=== PATIENT | male | born 1970 | race African-American/Black ===

== ENCOUNTER 2016-12-07 21:59 | Inpatient (IN) | payer OTHER ==
--- NOTE | ~2016-12-07 | CR72 ---
[facility] A Service of [facility] & [facility] RADIOLOGY TEXT RESULTS PATIENT: ROSEMARY TRUONG LOCATION: [place] [address] : 74 UNIT #: [id number] AGE: [address]: Letha Martinez MD SEX: M ORDER DR: [id number] [facility] [address] [facility]. [place], [place] [address] [id number] I MR#: [id number] Acc #: [id number] NAME: ROSEMARY TRUONG : 1970 SEX: M STUDY DATE/TIME: 12/07/2016 22:02 UNIT: [facility] ROOM: [facility] STUDY DESCRIPTION: CR Chest Single View Portable Attending Physician: Andi Real M.D. Ordering Physician: Blu Craig M.D. Primary Care Physician: Primary Care Physician No MEDICAL IMAGING REPORT This report is preliminary unless electronic signature is present EXAM Single view of the chest, dated 12/07/2016. COMPARISON None. HISTORY Fatigue, fever and congestion for 3 days. FINDINGS A single AP portable view of the chest shows both lungs to be clear. The heart is normal in size. The mediastinal contour is normal. No significant bone abnormalities are seen. IMPRESSION Normal portable chest. Dictated by... Maurice Moralez M.D. THIS IS AN ELECTRONICALLY VERIFIED REPORT Maurice Moralez M.D. at 12/10/2016 1:40 PM CPR/cs TD: 12/08/2016 18:30 JOB #: [id number] MEDICAL IMAGING REPORT Page 1 of 1 COPY
--- NOTE | ~2016-12-07 | DS ---
Unit #: [id number] #: [id number] Patient: ROSEMARY TRUONG [id number] [address] [address] [id number] Issac MR#: [id number] NAME: ROSEMARY TRUONG ROOM: [facility] Age: 46 Sex: M Admission Date: 12/07/2016 : 1970 Discharge Date: 12/10/2016 Attending Physician: Letha Martinez M.D. DISCHARGE SUMMARY DISCHARGE DIAGNOSES 1. Hypertensive urgency. 2. Chronic kidney disease and polycystic kidney disease with stage 3. 3. Smoking. 4. Mild hypokalemia. 5. Headache. CONSULTATION Dr. Bee. PROCEDURES None. DIAGNOSTIC STUDIES LABORATORY: Urinalysis negative. Sodium 137, potassium 3.9, and creatinine 2.6. WBC 6.2, hemoglobin 13.4, and platelets 185,000. Urine drug screen positive for marijuana. IMAGING: CT scan of the head shows no acute intracranial abnormalities. Chest x-ray normal. CT scan of the abdomen without contrast shows extensive polycystic kidney with multiple cysts. Ultrasound of the kidneys shows numerous cysts bilaterally. ALLERGIES LISINOPRIL. DISCHARGE MEDICATIONS 1. Lopressor 100 p.o. b.i.d. 2. Hydralazine 25 at 3 times daily. 3. Cozaar 50 daily. 4. Amiloride 10 mg daily. HOSPITAL COURSE A 46-year-old admitted because of high blood pressure. Hypertensive urgency. Patient was seen by Dr. Monson. Currently, blood pressure is 150/88. Patient was started on new medications including metoprolol, hydralazine, Cozaar, and amiloride. Prescriptions have been given. I talked with the patient extensively regarding compliance with medications. He understands. Patient needs to avoid NSAIDS. Headache secondary to uncontrolled hypertension. Patient received Lortab. I did not give any prescriptions to take home. Unit #: [id number] #: [id number] Patient: ROSEMARY TRUONG Polycystic kidney disease with chronic kidney disease stage 3. Patient was seen by Dr. Monson. Currently, creatinine is stable. Okay to discharge. Avoid NSAIDS. DISPOSITION Discharge home. FOLLOWUP 1. With family physician in one week's time. 2. With Dr. Monson in two week's time. 1. Dictated by... Shane Phan TD: 12/10/2016 21:34 JOB #: [id number] DISCHARGE SUMMARY Page 1 of 1 X Letha Martinez MD X DISCHARGE SUMMARY
--- NOTE | ~2016-12-07 | US77 ---
[facility] A Service of [facility] RADIOLOGY TEXT RESULTS PATIENT: ROSEMARY TRUONG LOCATION: [place] [address] : 74 UNIT #: [id number] AGE: [address]: Letha Martinez MD SEX: M ORDER DR: [id number] [place] [id number] [place], [place] [address] [id number] I MR#: [id number] Acc #: [id number] NAME: ROSEMARY TRUONG : 1970 SEX: M STUDY DATE/TIME: 12/08/2016 12:15 UNIT: [facility] ROOM: [facility] STUDY DESCRIPTION: US Kidney Bilateral Complete Attending Physician: Andi Real M.D. Ordering Physician: Ed Doctor [id number] [facility] Primary Care Physician: Primary Care Physician No MEDICAL IMAGING REPORT This report is preliminary unless electronic signature is present EXAM Renal ultrasound INDICATION Renal failure. Patient has a creatinine of 2.5 and a GFR of 34.9. TECHNIQUE Rodriguez-scale and color Doppler sonographic images were obtained through the kidneys and bladder. FINDINGS Image quality is suboptimal, however patient does appear to have innumerable cysts seen throughout both kidneys, which would be in keeping with history of autosomal dominant polycystic kidney disease. No definite hydronephrosis is seen. Urinary bladder appears unremarkable. IMPRESSION Poor quality study, however patient does have innumerable cysts seen throughout both kidneys which would be keeping with history of autosomal dominant polycystic kidney disease. Dictated by... Tricia Barba M.D. THIS IS AN ELECTRONICALLY VERIFIED REPORT Tricia Barba M.D. at 12/11/2016 1:00 PM AFF/mjzev TD: 12/09/2016 07:49 JOB #: [id number] MEDICAL IMAGING REPORT [facility] A Service of [facility] RADIOLOGY TEXT RESULTS PATIENT: ROSEMARY TRUONG LOCATION: [place] [address] : 74 UNIT #: [id number] AGE: [address]: Letha Martinez MD SEX: M ORDER DR: Page 1 of 1 COPY
--- NOTE | ~2016-12-07 | CO ---
Unit #: [id number] #: [id number] Patient: ROSEMARY TRUONG [id number] [address] [place], [place] [address] [id number] Issac MR#: [id number] NAME: ROSEMARY TRUONG ROOM: 55 Age: 46 Sex: M Admission Date: 12/07/2016 : 1970 Attending Physician: Andi Real M.D. Primary Care Physician: No Primary Care Physician CONSULTATION REPORT REASON FOR CONSULTATION Known history of polycystic kidney disease, accelerated hypertension, noncompliance with medical therapy. First of all, I want to thank you for the opportunity to share in the care of this patient. HISTORY OF PRESENTING ILLNESS The patient is a 46-year-old -Romanian gentleman with a history of multiple problems including hypertension, polycystic kidney disease, previous history of tobacco and substance abuse. Currently, he still smokes one and a half packs per day. The patient quit taking his blood pressure medicines for more than a year and a half. He came in with headache and feeling weak. Blood pressures are 208 systolic, diastolic 135. The patient had chronic kidney disease with polycystic kidney disease. It runs in the family. He has multiple family members on dialysis. The patient denied any urinary complaints of dysuria, frequency of urination or hesitancy of urination. His blood pressure has come down slightly from that level to 195/124. It is still quite remarkably high. The patient was started on metoprolol 50 b.i.d. and losartan 50. It hasn't touched much off his blood pressure. Recommend increasing metoprolol to 100 b.i.d. adding amiloride 10 mg daily and hydralazine 25 t.i.d. The patient will probably need loop diuretics in addition to these medicines but will start these. I will rule out other secondary causes. Will also get a CAT scan as patient has no radiologic study done recently to see number of the cysts and size of his kidneys and rule out any mechanical problems including obstructive nephropathy. PAST MEDICAL HISTORY As per history of presenting illness. FAMILY HISTORY Positive for polycystic kidney disease. ALLERGIES Lisinopril. MEDICATIONS He was taking no medications except Excedrin for headaches. PHYSICAL EXAMINATION GENERAL: The patient is in no acute distress. I spent more than 40 minutes with him and his girlfriend discussing his care and need for him to do a compliance and quit smoking and be compliant with medications or Unit #: [id number] #: [id number] Patient: ROSEMARY TRUONG he will risk rapid progression to ESRD. That was clearly explained to the patient. VITAL SIGNS: Temperature 98.2, pulse 78, blood pressure 195/124. HEENT: Unremarkable. NECK: Supple. There is no JVD. No bruit, no thyromegaly, no lymphadenopathy. CHEST: Clear to auscultation bilaterally. CARDIOVASCULAR: Regular rate and rhythm. There is no rub, murmur or gallop. ABDOMEN: Soft, nontender. No abdominal bruit. Positive bowel sounds. EXTREMITIES: Positive trace peripheral edema. DIAGNOSTIC STUDIES LABORATORY DATA: Sodium 136, potassium 3.6, chloride 104, bicarb 24, BUN 16, creatinine 2.5, glucose 90, calcium 8.4. ASSESSMENT 1. Patient with chronic kidney disease stage 3 with polycystic kidney disease: Will check a CT scan of both kidneys to assess number and size of the cysts and both kidneys. Check UA, urine lytes, urine (1) and eosinophils. 2. Stage 2 hypertension: Patient counseled on low sodium diet, quitting smoking. Will add amiloride 10 mg daily, hydralazine 25 t.i.d. Increase metoprolol to 100 mg b.i.d. Patient will still continue to use p.r.n. hydralazine orally, 25 mg p.o. q.6 hours p.r.n. for systolic blood pressure over 150, diastolic over 85. Will follow closely. Dictated by... Shane Agarwal/jany TD: 12/09/2016 09:21 JOB #: [id number] CONSULTATION REPORT Page 1 of 1 X Silvia Bee MD X CONSULTATION REPORT
--- NOTE | ~2016-12-07 | CT7 ---
[facility] A Service of [facility] RADIOLOGY TEXT RESULTS PATIENT: ROSEMARY TRUONG LOCATION: [facility] 55- : 74 UNIT #: [id number] AGE: [address]: Andi Real MD SEX: M ORDER DR: [id number] [place] [id number] [facility]. [place], [place] [address] [id number] MR#: [id number] Acc #: [id number] NAME: ROSEMARY TRUONG : 1970 SEX: M STUDY DATE/TIME: 12/08/2016 19:22 UNIT: [facility] ROOM: [facility] STUDY DESCRIPTION: CT Abdomen Wo Cont Attending Physician: Andi Real M.D. Ordering Physician: Adi Bee M.D. Primary Care Physician: Primary Care Physician No MEDICAL IMAGING REPORT This report is preliminary unless electronic signature is present EXAM CT abdomen without contrast HISTORY Back pain for 2 days. Hypertension. Polycystic kidney disease. Chronic kidney disease. TECHNIQUE This CT examination was performed with one or more of the following radiation dose reduction techniques: automatic exposure control, adjustment of mA and/or kV according to patient size, and iterative reconstruction. FINDINGS CT abdomen was performed without contrast. There is advanced bilateral polycystic kidney disease with multiple cysts almost completely replacing the renal parenchyma bilaterally. These result in bilateral renal enlargement. The right kidney measures 11 cm x 10.7 cm in AP and transverse dimensions and 18 cm in length and the left kidney measures 10 cm x 10.8 cm in AP and transverse dimensions and 15.4 cm in length. Cysts measure up to close to 4 cm in both kidneys. There are multiple, although less extensive cysts in the liver, measuring up to nearly 3 cm. No hepatomegaly. The gallbladder, spleen, pancreas, and abdominal aorta are unremarkable. The adrenal glands are poorly visualized and could be compressed or displaced by the enlarged bilateral kidneys. No bowel dilatation. No ascites. No inflammatory stranding. No adenopathy. IMPRESSION 1. Extensive bilateral polycystic kidney disease with multiple cysts effectively replacing the entire renal parenchyma bilaterally and resulting in bilateral renal enlargement. The right kidney measures [facility] A Service of [facility] & [facility] RADIOLOGY TEXT RESULTS PATIENT: ROSEMARY TRUONG LOCATION: [facility] [id number] : 74 UNIT #: [id number] AGE: [address]: Andi Real MD SEX: M ORDER DR: close to 18 cm in length and the left kidney measures close to 15.4 cm in length. Multiple bilateral renal cysts measure up to approximately 4 cm bilaterally. 2. There are multiple although less extensive hepatic cysts measuring up to close to 3 cm with no associated hepatomegaly. No biliary dilatation. 3. Remainder of the CT abdomen is unremarkable. Dictated by... Richie Neal M.D. THIS IS AN ELECTRONICALLY VERIFIED REPORT Richie Neal M.D. at 12/09/2016 11:31 PM VEGA/cheo TD: 12/09/2016 14:15 JOB #: [id number] MEDICAL IMAGING REPORT Page 1 of 1 COPY
--- NOTE | ~2016-12-07 | HP ---
Unit #: [id number] #: [id number] Patient: ROSEMARY TRUONG [id number] [address] [address] [id number] I MR#: [id number] NAME: ROSEMARY TRUONG ROOM: 55 Age: 46 Sex: M Admission Date: 12/07/2016 : 1970 Attending Physician: Andi Real M.D. Primary Care Physician: Primary Care Physician No HISTORY AND PHYSICAL CHIEF COMPLAINT Headache, weakness. HISTORY OF PRESENT ILLNESS This is a 46-year-old gentleman with a history of hypertension, polycystic kidney disease, chronic kidney disease, being noncompliant with medication, been not taking medication for a long time, presented to emergency room with chief complaint of having headache, feeling weak, fatigued, and found to have blood pressure 208/135 and eventually being admitted for hypertensive urgency. He denied chest pain, denies nausea, vomiting, fevers, chills, cough or other complaint. PAST MEDICAL HISTORY 1. Hypertension. 2. Polycystic kidney disease. 3. Chronic kidney disease. PAST SURGICAL HISTORY Denies any surgical intervention in the past. HOME MEDICATIONS Currently not taking any medication. ALLERGIES Lisinopril. SOCIAL HISTORY Smokes one pack daily. Denies alcohol, denies other illicit drug use. REVIEW OF SYSTEMS All review of systems negative except for history of present illness. PHYSICAL EXAMINATION VITAL SIGNS: Temperature 98.6, heart rate 78, respiratory rate 16, blood pressure 197/127. GENERAL: Middle-aged man lying in the bed, comfortable, currently not in any distress. He is alert, awake, oriented x3. HEENT: Pupils are equal and reactive to light and accommodation. Head is normocephalic, atraumatic. NECK: Supple. No JVD, no thyromegaly. LUNGS: Clear to auscultation. No rhonchi, no wheezing. HEART: S1, S2. Regular rate and rhythm. ABDOMEN: Soft, nontender, nondistended. Bowel sounds positive. EXTREMITIES: Normal. No cyanosis, clubbing, or edema. Unit #: [id number] #: [id number] Patient: ROSEMARY TRUONG NEUROLOGIC: Alert and oriented x4. Cranial nerves II-XII intact. No focal neurologic deficits. SKIN: No rash. DIAGNOSTIC STUDIES LABORATORY: Sodium 136, potassium 3.4, chloride 103, glucose 100, BUN 17, creatinine 2.3, LFTs within normal limits. CBC white count 6.4, hemoglobin 13, hematocrit 40, platelets 155. IMAGING: CT head negative. Chest x-ray negative. ASSESSMENT AND PLAN 1. Hypertensive urgency. Admitted patient 23 hour observation. Will start patient on Cozaar and metoprolol and hydralazine on a p.r.n. basis. 2. History of polycystic kidney disease with increased creatinine. Ask Nephrology to evaluate. 3. Tobacco abuse. 4. Mild hypokalemia. Replace. Dictated by Shane Bender TD: 12/08/2016 12:24 JOB #: [id number] HISTORY AND PHYSICAL Page 1 of 1 X X HISTORY AND PHYSICAL
--- NOTE | ~2016-12-07 | CT71 ---
[facility] A Service [facility] RADIOLOGY TEXT RESULTS PATIENT: ROSEMARY TRUONG LOCATION: [place] [address] : 74 UNIT #: [id number] AGE: [address]: Letha Martinez MD SEX: M ORDER DR: [id number] [facility] [address] [facility]. [place], [place] [address] [id number] I MR#: [id number] #: [id number] NAME: ROSEMARY TRUONG : 1970 SEX: M STUDY DATE/TIME: 12/07/2016 22:14 UNIT: [facility] ROOM: [facility] STUDY DESCRIPTION: CT Head Wo Contrast Attending Physician: Andi Real M.D. Ordering Physician: Blu Craig M.D. Primary Care Physician: No Primary Care Physician MEDICAL IMAGING REPORT This report is preliminary unless electronic signature is present EXAM CT head without contrast dated 12/07/16 COMPARISON STUDIES None HISTORY Headache for a day. TECHNIQUE This CT exam was performed with one or more of the following radiation dose reduction techniques: automatic exposure control, adjustment of mA and/or kV according to patient size, and iterative reconstruction. FINDINGS CT of the head was obtained without contrast in the axial plane as per the protocol. No acute intracranial hemorrhage, hydrocephalous, space occupying mass, mass effect. Midline shift or cortical based large or acute stroke. Motion artifact limits evaluation of some of the images of the mid portion of the brain. There is mild nasal septal deviation to the left. Paranasal sinuses and mastoid air cells are well aerated. Imaged orbits and the ocular structures, skull are within normal limits. IMPRESSION No demonstrable acute intracranial abnormality. Dictated by... Maurice Moralez M.D. [facility] A Service [facility] RADIOLOGY TEXT RESULTS PATIENT: ROSEMARY TRUONG LOCATION: [facility] 55 : 74 UNIT #: [id number] AGE: [address]: Letha Martinez MD SEX: M ORDER DR: THIS IS AN ELECTRONICALLY VERIFIED REPORT Maurice Moralez M.D. at 12/10/2016 1:40 PM CPR/ea TD: 12/08/2016 18:50 JOB #: [id number] MEDICAL IMAGING REPORT Page 1 of 1 COPY
[2016-12-07 22:12] LABS: BASOPHIL% 0.2 % (0-2.5); EOSINOPHIL% 0.4 % (0.0-7.0); LYMPHOCYTE# 0.9 X10e3 (1.0-3.5); LYMPHOCYTE% 14.4 % (17.0-45.0); MEAN CELL VOLUME 91.7 FL (83-96); MEAN CORPUSCULAR HEMOGLOBIN 29.7 PG (28-34); MEAN CORPUSCULAR HGB CONC 32.4 g/dL (30-36); MEAN PLATELET VOLUME 8.8 FL (6.5-11.5); MONOCYTE# 0.9 X10e3 (0-1.0); MONOCYTE% 13.3 % (3.0-12.0); NEUTROPHIL# 4.6 X10e3 (1.5-7.1); NEUTROPHIL% 71.7 % (40-75); PLATELET COUNT 155 X10e3 (140-420); RED BLOOD COUNT 4.36 X10e (3.90-5.60); RED CELL DISTRIBUTION WIDTH 13.6 % (11.0-15.5); WHITE BLOOD COUNT 6.4 X10e3 (4.0-10.5)
[2016-12-07 22:13] LABS: DIFF IND NO
[2016-12-07 22:35] LABS: ALBUMIN SERUM 2.8 g/dL (3.5-5.0); ALKALINE PHOSPHATASE 59 U/L (32-92); ALT (SGPT) 12 U/L (10-40); AST (SGOT) 16 U/L (10-42); BILIRUBIN,TOTAL 0.5 mg/dL (0.2-2.0); BLOOD UREA NITROGEN 17 mg/dL (9-23); BUN/CREATININE RATIO 7.39; CALCIUM SERUM 8.3 mg/dL (8.4-10.2); CARBON DIOXIDE 24 mmol/L (22-31); CHLORIDE 103 mmol/L (100-111); CREATININE SERUM 2.3 mg/dL (0.6-1.4); GLOM FILT RATE Estimated 38.6 mL/min (>60); GLUCOSE FASTING 100 mg/dL (70-110); POTASSIUM 3.4 mmol/L (3.5-5.1); PROTEIN TOTAL SERUM 6.2 g/dL (6.0-8.3); SODIUM 136 mmol/L (135-145)
[2016-12-07 22:37] LABS: BILIRUBIN, DIRECT <0.1 mg/dL (0.0-0.2); BILIRUBIN,INDIRECT 0.4 mg/dL (0.0-0.9)
[2016-12-07] MEDS ORDERED: NO MEDICATIONS (23:07)
[2016-12-08 04:26] LABS: BUN/CREATININE RATIO 6.4; CALCIUM SERUM 8.4 mg/dL (8.4-10.2); CREATININE SERUM 2.5 mg/dL (0.6-1.4); GLOM FILT RATE Estimated 34.9 mL/min (>60); POTASSIUM 3.6 mmol/L (3.5-5.1)
[2016-12-09 03:44] LABS: URINE SOURCE CLEAN CATCH
[2016-12-09 03:49] LABS: URINE APPEARANCE CLEAR; URINE BILIRUBIN NEG (NEG); URINE BLOOD TRACE (NEG); URINE COLOR YELLOW; URINE GLUCOSE NEG (NEG); URINE KETONE NEG (NEG); URINE LEUKOCYTE ESTERASE TRACE (NEG); URINE NITRATE NEG (NEG); URINE PH 7.5 (5-8); URINE PROTEIN 3+ (NEG); URINE SPECIFIC GRAVITY 1.011 (1.003-1.035)
[2016-12-09 03:51] LABS: CULTURE INDICATED? YES; URINE BACTERIA AUWI NEG (NEGATIVE); URINE SQUAMOUS EPITHELIAL CELL NONE SEEN /[HPF]
[2016-12-09 04:00] LABS: AMPHETAMINE NEG (NEG); BARBITURATES NEG (NEG); BENZODIAZEPINES NEG (NEG); COCAINE NEG (NEG); MARIJUANA POS (NEG); OPIATES NEG (NEG); TRICYCLIC ANTIDEPRESSANTS NEG (NEG); U METHADONE NEG (NEG)
[2016-12-09 04:03] LABS: POTASSIUM,URINE RANDOM 7 mmol/L
[2016-12-09 04:06] LABS: CREATININE,RANDOM URINE 92 mg/dL; SODIUM URINE RANDOM 84 mmol/L
[2016-12-09 06:15] LABS: HEMATOCRIT 40.2 % (38.0-50.0); HEMOGLOBIN 13.1 gm/dL (13.0-16.0); MEAN CORPUSCULAR HEMOGLOBIN 29.7 PG (28-34); MEAN CORPUSCULAR HGB CONC 32.7 g/dL (30-36); MEAN PLATELET VOLUME 8.9 FL (6.5-11.5); RED BLOOD COUNT 4.42 X10e (3.90-5.60); RED CELL DISTRIBUTION WIDTH 13.4 % (11.0-15.5); WHITE BLOOD COUNT 6.2 X10e3 (4.0-10.5)
[2016-12-09 06:49] LABS: BUN/CREATININE RATIO 7.3; CALCIUM SERUM 8.6 mg/dL (8.4-10.2); CREATININE SERUM 2.6 mg/dL (0.6-1.4); GLOM FILT RATE Estimated 33.3 mL/min (>60); MAGNESIUM 1.7 mg/dL (1.6-3.0); POTASSIUM 3.7 mmol/L (3.5-5.1)
[2016-12-10 05:19] LABS: HEMATOCRIT 41.4 % (38.0-50.0); HEMOGLOBIN 13.4 gm/dL (13.0-16.0); MEAN CELL VOLUME 91.2 FL (83-96); MEAN CORPUSCULAR HEMOGLOBIN 29.6 PG (28-34); MEAN CORPUSCULAR HGB CONC 32.4 g/dL (30-36); MEAN PLATELET VOLUME 8.9 FL (6.5-11.5); RED BLOOD COUNT 4.54 X10e (3.90-5.60); RED CELL DISTRIBUTION WIDTH 13.4 % (11.0-15.5); WHITE BLOOD COUNT 6.2 X10e3 (4.0-10.5)
[2016-12-10 06:14] LABS: BUN/CREATININE RATIO 6.92; CALCIUM SERUM 8.6 mg/dL (8.4-10.2); CREATININE SERUM 2.6 mg/dL (0.6-1.4); GLOM FILT RATE Estimated 33.3 mL/min (>60); POTASSIUM 3.9 mmol/L (3.5-5.1)
[2016-12-10] MEDS ORDERED: LOPRESSOR PO (17:37)
[2016-12-10] MEDS ORDERED: HYDRALAZINE HCL25 MG PO (17:37)
[2016-12-10] MEDS ORDERED: COZAAR PO (17:38)
[2016-12-10] MEDS ORDERED: AMILORIDE PO (17:39)
== END 2016-12-10 19:30 | disposition home or self-care (01) | DRG 305 ==
LOC: CED 21:59 → CEDOF 23:30 → C5B 12-08 08:12
PROVIDERS: Emergency Medicine; Internal Medicine; Internal Medicine Nephrology
PROC: B246ZZZ Ultrasonography of Right and Left Heart (ICD-10-PCS; principal; 2016-12-08)
DX: I16.0 Hypertensive urgency (principal); Q61.3 Polycystic kidney, unspecified; N18.3 Chronic kidney disease, stage 3 (moderate); E87.6 Hypokalemia; I12.9 Hypertensive chronic kidney disease with stage 1 through stage 4 chronic kidney disease, or unspecified chronic kidney disease; F17.210 Nicotine dependence, cigarettes, uncomplicated; R51 Headache; R53.1 Weakness; Z88.8 Allergy status to other drugs, medicaments and biological substances; Z91.14 Patient's other noncompliance with medication regimen; Z84.1 Family history of disorders of kidney and ureter
CPT/HCPCS: 36415; 70450; 71010; 74150; 76770; 80048; 80076; 80307; 81003; 82436; 82570; 83735; 84133; 84300; 85025; 85027; 87086; 89190; 93306; 96374; 96375; 99285; J0360; J1200; J2765